=== PATIENT | male | born 1965 | race Two or more races ===

== ENCOUNTER 2023-06-19 20:02 | Emergency (ER) | payer MEDICAID ==
[~2023-06-19] VITALS: Ht 172.7 cm; Wt 82.0 kg
[2023-06-19 20:05] VITALS: TEMP 98.3
[2023-06-19] MEDS: KETOROLAC TROMETHAMINE 30 MG/ML VIAL IM ONE (22:26)
[2023-06-19] MEDS: CLINDAMYCIN HCL 150 MG CAPSULE PO ONE (22:26)
[2023-06-19] MEDS ORDERED: CLIN-142 PO (22:26)
[2023-06-19 22:49] VITALS: BP 134/86; PULSE 84; RESP 16
== END 2023-06-19 22:52 | disposition home or self-care (01) ==
LOC: EMS 20:06
DX: L03.114 Cellulitis of left upper limb (principal); I10 Essential (primary) hypertension; Z90.49 Acquired absence of other specified parts of digestive tract
CPT/HCPCS: 99283; 73110; 96372; J1885

== ENCOUNTER 2025-02-28 01:59 | Emergency (ER) | payer MEDICAID ==
[~2025-02-28] VITALS: Ht 172.7 cm; Wt 77.3 kg
[~2025-02-28 01:59] MED LIST: CLIN-142 PO
[2025-02-28 02:09] VITALS: TEMP 98.6
[2025-02-28 02:52] VITALS: BP 132/99; PULSE 88; RESP 18; O2SAT 100
[2025-02-28] MEDS ORDERED: LIDOCAINE 1% 10 ML VIAL SQ ONE (04:15)
[2025-02-28] MEDS ORDERED: PERTUSS(ACELL),DIPH,TET/PF 0.5 ML SYRINGE [ADULT] IM. ONE (04:15)
== END 2025-02-28 04:50 | disposition short-term general hospital (02) ==
LOC: EMS 02:12
DX: S01.81XA Laceration without foreign body of other part of head, initial encounter (principal); M50.20 Other cervical disc displacement, unspecified cervical region; I10 Essential (primary) hypertension; Z90.49 Acquired absence of other specified parts of digestive tract; Z98.890 Other specified postprocedural states; Z79.899 Other long term (current) drug therapy; V00.148A Other scooter (nonmotorized) accident, initial encounter; Y93.55 Activity, bike riding; Y92.89 Other specified places as the place of occurrence of the external cause; Y99.8 Other external cause status
CPT/HCPCS: 99291; 70450; 70486; 72125; 12014; J3490; 90715